=== PATIENT | male | born 1985 | race Two or more races ===

== ENCOUNTER 2024-03-15 16:51 | Emergency (ER) | payer MEDICAID, OTHER ==
[~2024-03-15] VITALS: Ht 167.6 cm; Wt 85.5 kg
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
[2024-03-15] MEDS ORDERED: HYDR-4902 PO (19:17)
[2024-03-15] MEDS ORDERED: IBUP-1455 PO (19:17)
[2024-03-15] MEDS ORDERED: CYCL-839 PO (19:17)
[2024-03-15] MEDS: KETOROLAC TROMETH 60MG/2ML VIAL IM ONE (21:02)
[2024-03-15 21:06] VITALS: BP 119/74; PULSE 56; RESP 16; TEMP 97.8; O2SAT 98
== END 2024-03-15 21:07 | disposition home or self-care (01) ==
LOC: ER 16:51
DX: S39.012A Strain of muscle, fascia and tendon of lower back, initial encounter (principal); V89.2XXA Person injured in unspecified motor-vehicle accident, traffic, initial encounter; Y92.410 Unspecified street and highway as the place of occurrence of the external cause
CPT/HCPCS: 72070; 72100; 99284; J1885